=== PATIENT | male | born 1955 | race Caucasian/White ===

== ENCOUNTER 2018-07-27 08:55 | Inpatient (IN) | payer BC ==
[2018-07-27 10:06] LABS: INR-International Normal Ratio 1.2; PTT 28.3 SEC (22.9-36.1); Prothrombin Time 15.6 SEC (12.0-14.7)
[2018-07-27] MEDS ORDERED: Dextrose 50% Abboject 50 ML SYRINGE SLOW IVP PRN (10:29)
[2018-07-27] MEDS ORDERED: Dextrose 5% in Water 1,000 ML IV PRN (10:29)
[2018-07-27] MEDS ORDERED: HumaLOG 300 UNITS/3 ML VIAL SC PRN (10:29)
[2018-07-27] MEDS ORDERED: HYDROcodone/Acetaminophen 10/325 mg Tablet PO PRN (10:39)
[2018-07-27] MEDS ORDERED: Heparin 10,000 UNITS/ 10 ML VIAL SLOW IVP SCH (10:45)
[2018-07-27] MEDS ORDERED: Heparin 25,000 units/D5W 500 ML IVPB SCH (10:45)
[2018-07-27] MEDS ORDERED: Heparin 25,000 units/D5W 500 ML ONE (10:46)
[2018-07-27 11:08] LABS: Hemoglobin 14.8 g/dL (14.0-18.0); Platelet Count 221 thou/uL (130-400)
[2018-07-27] MEDS ORDERED: Dexamethasone 4 MG in Sodium Chloride 0.9% 50 ML IVPB SCH (12:00)
--- NOTE | 2018-07-27 12:01 | HP ---
CHIEF COMPLAINT: Shortness of breath, transfer from [facility] [place] [facility] in [place]. HISTORY OF PRESENT ILLNESS: This patient is a 62-year-old male, who was very recently diagnosed with what appears to be lung cancer with brain metastases and he is being followed in [place], [place] for treatments. He initiated whole-brain radiation therapy for the first time yesterday. The patient's family reports he has had a little bit of confusion over the last couple of days. The patient had the abrupt onset of significant shortness of breath about 2 o'clock in the morning today. He presented to the emergency room at [facility] [place] [facility] in [place]. He reported profuse diaphoresis. He was initially given some IV fluids and was noted to be tachycardic, but not in distress otherwise. The patient had a workup there, which was consistent with pneumonia and pulmonary embolus throughout the right lung and left basilar lung with some underlying features of right heart strain. Attempts to transfer the patient closer to his cancer team were unsuccessful due to lack of bed capacity and the patient is subsequently being transferred here. History was assisted by the patient's and son as the patient remains a little bit confused. REVIEW OF SYSTEMS: Per the family, the patient has had some edema of his lower extremities, although it has not been too bad. The patient completely denies any of that. Denies any leg pain or chest pain per se. The patient reported that his bowels have been "more rapid" than what he would consider normal. Otherwise, remainder of the review of systems as best I can tell is negative. PAST MEDICAL HISTORY: Notable for history of alcoholism, the patient quit in 1987; anxiety; arthritis; chronic back pain; depression; diabetes mellitus; hypertension; hypogonadism with low testosterone; lung cancer; obesity; sleep apnea; history of staph infection. The patient also has a right upper extremity fracture that apparently is recent and I believe related to a fall. PAST SURGICAL HISTORY: Lung biopsy of the right mediastinum. He has had oral surgery and neck surgery. FAMILY HISTORY: Heart disease in his father and alcohol abuse in his father. SOCIAL HISTORY: The patient was a former smoker, quit in 1988, and quit alcohol in 1987. No drug use. He is . He is full code and his is his surrogate decision maker. ALLERGIES: HYDROCODONE, WHICH CAUSES SOME FEET SWELLING, ALTHOUGH THE PATIENT IS CURRENTLY TAKING HYDROCODONE ON HIS MEDICATION LIST, AND PENICILLINS, WHICH CAUSE A RASH. HOME MEDICATIONS: 1. Albuterol HFA inhaler p.r.n. 2. Amlodipine 10 mg p.o. daily. 3. Aspirin 81 mg p.o. daily. 4. Cetirizine 10 mg daily. 5. Trulicity 0.75/0.5 injection q.week. 6. Cymbalta 60 mg daily. 7. Farxiga 5 mg daily. 8. Advair 250/50 one inhalation b.i.d. 9. Glimepiride 2 mg daily. 10. Hydrocodone 10/325 one q.6 hours p.r.n. pain. 11. Metformin XR 1000 mg daily. 12. Multivitamin one daily. 13. Tramadol 50 mg q.6 hours p.r.n. PHYSICAL EXAMINATION: VITAL SIGNS: The patient was tachycardic on his arrival at the other facility. Here, vital signs are BP 122/99, pulse 119, respirations 23, and O2 saturations 96% on 2 L. GENERAL APPEARANCE: Age-appropriate male. He is a bit tachypneic, but in no specific distress. He is awake, alert, confused, pleasant, and cooperative. HEENT: His pupils are slightly dilated and modestly reactive. He has no OP lesions. Dry oral mucosa. NECK: Supple and symmetric. HEART: Regular rate and rhythm without murmurs, gallops, or rubs. LUNGS: The lungs have actually some diminished breath sounds with some mild scattered rales throughout. ABDOMEN: Soft, nontender, and nondistended. Positive bowel sounds. No masses. No organomegaly. EXTREMITIES: No cyanosis, clubbing, or edema. He does have some varicosities. There are no palpable cords, erythema, or tenderness to palpation. NEUROLOGIC: The patient appears to be generally intact other than his pupils being a bit dilated and sluggish. He has no other focal deficits. LABORATORY DATA: Performed at the outside facility, sodium was 131, glucose 538, CO2 of 18, alkaline phosphatase 1044, total bilirubin 1.5, and AST is 41. White count was 24. Ammonia 38. Beta hydroxybutyrate 0.9. Lactic acid 2.5. Urinalysis largely unremarkable. BMP, magnesium, troponin, ethanol level, GFR, lipase, and PTT were all normal. CT angiogram of the chest notable for segmental pulmonary emboli throughout the right lung and left basilar lung with underlying features of right heart strain. Increased coalescence, upper lung airspace opacities with interstitial thickening potentially reflective of pneumonia, pulmonary edema, pulmonary infarction and/or metastatic disease. There is a right lower lobe mass with increased nodular bandlike opacities suggestive of primary lung malignancy. Progressive pulmonary and skeletal metastases with pathologic fractures and new bilateral pleural effusions. CT of the head showed innumerable intracranial lesions consistent with brain metastases, mottled sclerosis and lucencies involving the calvarium suspicious for osseous metastatic disease. Chest x-ray, increased bibasilar reticulonodular opacities, reflective of pulmonary edema or pneumonia. Known right lung mass with increased size. IMPRESSION AND PLAN: 1. Acute hypoxic respiratory failure. 2. Pulmonary emboli. The patient is on a heparin drip. We will continue that. Admit to the floor. Consult Pulmonary for further assistance. We will also get lower extremity Dopplers. The patient may be a candidate for oral intervention. 3. Pneumonia. Cover with Rocephin and azithromycin. 4. Widely metastatic stage 4 lung cancer with numerous brain metastases and skeletal metastases. The patient had whole-brain radiation started yesterday. We will attempt to contact his primary provider to make him aware of the current situation. The patient could not be transferred to the treating hospital due to a lack of bed capacity. 5. Diabetes mellitus. The patient's blood sugar apparently has not been well controlled. It was too high for them to perform a PET scan. His blood sugar at the other facility was over 500. I do not have some of the medications that he takes on a daily basis in our system. We will go ahead and cover with sliding scale insulin, and keep him on a diabetic diet. 6. Hypertension, stable. 7. Disposition. We will consult the Palliative Care team for family support. Job ID: [id number]
--- NOTE | 2018-07-27 12:02 | ULT ---
Venous duplex sonogram bilateral lower extremity HISTORY: Bilateral leg pain and edema. Pulmonary embolus. FINDINGS: Incomplete compressibility of the right deep femoral vein, distal femoral vein, and poplite al vein. Good color and spectral Doppler flow remain. Remainder of the deep venous structures of the right leg are patent. Left common femoral, femoral and deep femoral, popliteal and posterior tibial vein show good color an d spectral Doppler flow. Complete compression. IMPRESSION: Incompletely occlusive thrombus involving the right femoral, popliteal, and deep femoral veins.
[2018-07-27 12:38] VITALS: BMI 37.5
--- NOTE | 2018-07-27 12:41 | CON ---
DATE OF CONSULTATION: 07/27/2018 HISTORY OF PRESENT ILLNESS: A 62-year-old obese gentleman, who was transferred from [facility] this morning after he presented with dyspnea, diaphoresis, confusion, tachycardic. His CT chest showed bilateral pulmonary emboli along with multiple lung metastases. He is a former smoker, quit smoking 30 years ago. In fact, he was at [facility] yesterday, underwent radiation treatment to his brain. There, we were in the process of starting chemotherapy. He sees Dr in [place]. His is at the bedside, gives all history. The patient is clearly confused. PAST MEDICAL HISTORY: Pertinent mainly for hypertension, diabetes, depression, chronic back pain, anxiety, arthritis, alcoholism, sleep apnea, lung cancer. PREVIOUS SURGERIES: Lung mediastinal biopsy on 06/09/2018, oral surgery, neck surgery. SOCIAL HISTORY: Tobacco as noted, quit smoking in 1979 and 30 years ago. A pack-a-day smoker. He operated cranes. Alcohol, none. REVIEW OF SYSTEMS: At this time difficult to obtain because of confusion. PHYSICAL EXAMINATION: GENERAL: Awake, confused. VITAL SIGNS: Sats are 95% on supplemental oxygen, pulse 80, blood pressure 120\72. CHEST: Decreased breath sounds. Extensive wheezing. CARDIAC: Sinus tach. ABDOMEN: Soft. DIAGNOSTIC DATA: CT report shows innumerable intracranial metastases. CT chest shows the mass and the pulmonary emboli. LABORATORY DATA: His lab showed urine was unremarkable. Alkaline phosphatase markedly elevated at 1044. Renal functions were normal. [place] [address], hemoglobin and hematocrit 15 and 41. IMPRESSION: 1. Extensive metastatic lung cancer, non-small cell, status post brain radiation. 2. Bilateral pulmonary emboli, possibly pneumonia. 3. Extensive skeletal metastasis. 4. Pleural effusion. 5. Hypertension. 6. Former smoker. 7. Diabetes. 8. Sleep apnea. PLAN: The prognosis remains guarded. He is started on IV heparin. Empiric antibiotics. Supportive care. Discussed with family. Once he stabilized, we may consider transfer him back to [place] if preferred to do so. Early ambulation. TIME SPENT: This is a 45-minute critical time. Job ID: [id number] MTDD
[2018-07-27] MEDS ORDERED: HumaLOG 300 UNITS/3 ML VIAL SC SCH (13:15)
[2018-07-27] MEDS: HYDROcodone/Acetaminophen 10/325 mg Tablet PO PRN ×2 (13:20→19:57)
[2018-07-27] MEDS: Sodium Chloride 0.9% 1,000 ML IV SCH (13:21)
[2018-07-27] MEDS ORDERED: Dexamethasone 4 mg/ml Vial SLOW IVP SCH (13:30)
[2018-07-27] MEDS ORDERED: HYDROmorphone 2 MG TAB PO PRN (15:59)
[2018-07-27] MEDS ORDERED: Diazepam 5 MG TAB PO SCH (16:45)
[2018-07-27] MEDS: Morphine 2 MG/ML SYRINGE SLOW IVP PRN (17:21)
[2018-07-27] MEDS: Dexamethasone 4 mg/ml Vial SLOW IVP SCH ×2 (17:27→23:37)
[2018-07-27] MEDS ORDERED: Budesonide 0.25 MG/2 ML NEB INH SCH (18:30)
[2018-07-27] MEDS ORDERED: Famotidine 20 MG TAB PO SCH (21:00)
[2018-07-27] MEDS: HumaLOG 300 UNITS/3 ML VIAL SC PRN (21:26)
[2018-07-28] MEDS ORDERED: Melatonin 3 MG TAB PO PRN (00:16)
[2018-07-28] MEDS: HYDROcodone/Acetaminophen 10/325 mg Tablet PO PRN (00:34)
[2018-07-28 00:46] LABS: PTT 132.6 SEC (22.9-36.1)
[2018-07-28] MEDS ORDERED: Calcium Chloride 1 GM/10 ML Abboject SYRINGE ONE (03:00)
[2018-07-28] MEDS ORDERED: EPINEPHrine 1 MG/10 ML Abboject SYRINGE ONE (03:00)
[2018-07-28] MEDS ORDERED: Sodium Bicarb 50 MEQ/50 ML Abboject 8.4% SYRINGE ONE (03:00)
[2018-07-28] MEDS: Morphine 2 MG/ML SYRINGE SLOW IVP PRN (03:14)
[2018-07-28] MEDS: Sodium Chloride 0.9% 1,000 ML IV SCH (03:18)
[2018-07-28 03:27] LABS: Band 4 % (5-11); Hemoglobin 13.4 g/dL (14.0-18.0); Lymphocytes 8 % (21-51); MDiff Complete? YES; Mean Corpuscular HGB CONC 32.2 g/dL (32.0-36.0); Mean Corpuscular Hemoglobin 27.5 pg (27.0-31.0); Mean Corpuscular Volume 85.4 fL (78.0-98.0); Mean Platelet Volume 9.3 fL (7.4-10.4); Monocytes 4 % (0-10); Neutrophil 84 % (42-75); Platelet Count 164 thou/uL (130-400); Platelet Morphology Comment Appears Adequate; RBC Distribution Width 14.4 % (11.5-14.5); Red Blood Cell (RBC) Count 4.88 mill/uL (4.70-6.10); White Blood Cell (WBC) Count 26.6 thou/uL (4.8-10.8)
[2018-07-28 04:00] LABS: Anion Gap 18 mmol/L (10-20); BUN (Urea Nitrogen) 23 mg/dL (8.4-25.7); Calc. Creatinine Clearance 140 mL/min (70-130); Calcium 8.7 mg/dL (7.8-10.44); Carbon Dioxide 20 mmol/L (22-29); Chloride 98 mmol/L (98-107); Estimated GFR-MDRD 82; Glucose 544 mg/dL (70-105); Potassium 5.2 mmol/L (3.5-5.1); Sodium 131 mmol/L (136-145)
[2018-07-28] MEDS: HumaLOG 300 UNITS/3 ML VIAL SC PRN (05:54)
[2018-07-28] MEDS: Dexamethasone 4 mg/ml Vial SLOW IVP SCH (05:55)
[2018-07-28] MEDS ORDERED: Meropenem 0.5 GM in Sodium Chloride 0.9% 100 ML IVPB SCH (06:00)
--- NOTE | 2018-07-28 06:28 | PDOC.EVN ---
Event Note - Event Note Event Note: pt has developed progressively worsening mental status, he is on heparin for PE , and has known mets, will do ct r/o bleed, I have spoken with the family and have explained that given acute illness and underlying metastatic cancer prognosis is poor at this point, we will monitor in IMCU as of now pt remains full code.
[2018-07-28] MEDS ORDERED: Succinylcholine Chloride 20 MG/ML 10 ml SYRINGE FS ONE (06:51)
--- NOTE | 2018-07-28 07:24 | PDOC.EVN ---
Event Note - Event Note Event Note: Pt collapsed after getting ct head , code blue activated, pt did not regained spontaneous circulation, ct discussed with radiologist, high risk for intra cranial bleeding due to hemorrhagic brain mets, decision not to give tPA , family at bedside, details discussed. Please see code sheet for details
--- NOTE | 2018-07-28 07:41 | CT ---
CT HEAD NONCONTRAST: INDICATION: Altered mental status. COMPARISON: No prior comparison. FINDINGS: There are numerous high-density foci throughout each cerebral hemisphere. The posterior fossa conten ts are not reliably assessed due to extensive beam-hardening/streak artifact from oral cavity hardwar e. There is no acute mass effect or midline shift of significance. Ventricular system is mildly pro minent due to compensatory dilatation from parenchymal volume loss. Fluid level and mucosal thickeni ng is seen within the left maxillary sinus. IMPRESSION: Findings most consistent with numerous intraaxial hemorrhagic metastases. Recommend pre- and postcon trast brain MRI for further evaluation. Telephone call placed to patient's physician at time of interpretation, 0651 hours, 07/28/2018. CODE CR POS: CELESTE
[2018-07-28 07:45] VITALS: BP 112/82; TEMP 97.5
[2018-07-28] MEDS ORDERED: metFORMIN XR 500 MG TAB PO SCH (08:00)
[2018-07-28] MEDS ORDERED: Glimepiride 2 MG TAB PO SCH (08:00)
[2018-07-28] MEDS ORDERED: DULoxetine 60 MG CAP PO SCH (09:00)
[2018-07-28] MEDS ORDERED: Aspirin 81 mg Enteric Coated Tablet PO SCH (09:00)
[2018-07-28] MEDS ORDERED: Amlodipine 10 MG TAB PO SCH (09:00)
[2018-07-28] MEDS ORDERED: Meropenem 500 MG in Sodium Chloride 0.9% 100 ML IVPB SCH (14:00)
[2018-07-28] MEDS ORDERED: Azithromycin 500 MG in Sodium Chloride 0.9% 250 ML 250 ML IVPB SCH (14:00)
[2018-07-28] MEDS ORDERED: cefTRIAXone\\ROCEPHIN 1 GM in Sodium Chloride 0.9% 100 ML IVPB SCH (14:00)
--- NOTE | 2018-07-29 13:44 | DIS ---
DATE OF ADMISSION: 07/27/2018 DATE OF DISCHARGE: 07/28/2018 SUMMARY DATE OF : The patient on July 28. ADDITIONAL ATTENDING PHYSICIAN: Angel Angelo MD MANAGER POWER: Dr. Forte. DISCHARGE DIAGNOSES: 1. Extensive metastatic lung cancer _small cell carcinoma, post brain radiation. 2. Hemorrhagic brain metastatic disease. 3. Bilateral pulmonary emboli. 4. Pneumonia. 5. Extensive skeletal metastasis. 6. Pleural effusion. 7. Hypertension. 8. Former smoker. 9. Diabetes. 10. Hypoxic respiratory failure, which is acute. 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 The patient presented to the ER after having worsening confusion. The symptoms have been getting worse for the past 2 to 3 days. He was admitted and was diagnosed with acute hypoxic respiratory failure secondary to possible pneumonia and also pulmonary embolism. The patient had been placed in heparin. The patient continued to deteriorate overnight with gradually worsening change in mental status. We decided to monitor the patient in IMCU given the worsening of the mentation. We decided to do a CT head to rule out any intracranial bleeding given high risk of bleeding from brain metastasis and need for anticoagulation due to underlying pulmonary embolism. While the patient getting the CT, the patient collapsed. Presenting lost of pulse. Code blue was activated and ran in the ER with no regain of spontaneous circulation. The family was at bedside. Details were given to them during the events and resuscitation efforts were stopped after no meaningful recovery was achieved. pt had reported hemorrhagic mets in the CT brain, and or this reasons tPA was not given, due to high risk for Intracranial hemorrhage. Most likely the cause of was pulmonary embolism. acute hypoxic respirator failure other related comorbidities were stage IV metastatic small cell carcinoma, hemorrhagic brain metastasis. diabetes type 2 pneumonia, Job ID: [id number] [facility]
== END 2018-07-28 07:12 | disposition expired | DRG 175 ==
LOC: ERS 08:55 → 2NO 12:24 → IMCU/EMU 07-28 06:26
PROVIDERS: ADMIT Internal Medicine; ATTEND Internal Medicine
DX: I26.99 Other pulmonary embolism without acute cor pulmonale (principal); J96.01 Acute respiratory failure with hypoxia; J18.9 Pneumonia, unspecified organism; C34.90 Malignant neoplasm of unspecified part of unspecified bronchus or lung; C79.31 Secondary malignant neoplasm of brain; C79.51 Secondary malignant neoplasm of bone; F41.9 Anxiety disorder, unspecified; M19.90 Unspecified osteoarthritis, unspecified site; G89.29 Other chronic pain; M54.9 Dorsalgia, unspecified; F32.9 Major depressive disorder, single episode, unspecified; E11.9 Type 2 diabetes mellitus without complications; I10 Essential (primary) hypertension; E66.9 Obesity, unspecified; G47.30 Sleep apnea, unspecified; Z87.891 Personal history of nicotine dependence; Z88.0 Allergy status to penicillin; Z88.5 Allergy status to narcotic agent; Z79.82 Long term (current) use of aspirin; Z79.899 Other long term (current) drug therapy; Z79.84 Long term (current) use of oral hypoglycemic drugs; Z68.37 Body mass index [BMI] 37.0-37.9, adult
CPT/HCPCS: 36415; 36416; 70450; 80048; 85014; 85018; 85025; 85049; 85610; 85730; 93005; 93970; 94640; 96365; A4353; J0171; J0456; J1100; J1644; J2185; J2270; J2997; J3490; J7050; J7620; J7626